=== PATIENT | female | born 1955 | race Native Hawaiian/Other Pacific Islander ===

== ENCOUNTER 2021-02-17 07:58 | Outpatient (CLI) | payer OTHER ==
[~2021-02-17] VITALS: Ht 175.3 cm; Wt 151.5 kg
== END 2021-02-17 19:40 | disposition home or self-care (01) ==
LOC: DIABINF 07:58
PROVIDERS: ATTEND Internal Medicine Endocrinology, Diabetes & Metabolism
DX: E11.65 Type 2 diabetes mellitus with hyperglycemia (principal); E11.40 Type 2 diabetes mellitus with diabetic neuropathy, unspecified; E78.2 Mixed hyperlipidemia; Z86.73 Personal history of transient ischemic attack (TIA), and cerebral infarction without residual deficits; K21.9 Gastro-esophageal reflux disease without esophagitis; F32.89 Other specified depressive episodes; E55.9 Vitamin D deficiency, unspecified; M17.0 Bilateral primary osteoarthritis of knee
CPT/HCPCS: 82948; 96365; 96366; 96521; 99204; J1815; J1817

== ENCOUNTER 2021-02-19 07:37 | Outpatient (CLI) | payer OTHER ==
[~2021-02-19] VITALS: Ht 175.3 cm; Wt 151.5 kg
== END 2021-02-19 20:21 | disposition home or self-care (01) ==
LOC: DIABINF 07:37
PROVIDERS: ATTEND Internal Medicine Endocrinology, Diabetes & Metabolism
DX: E11.65 Type 2 diabetes mellitus with hyperglycemia (principal); E11.40 Type 2 diabetes mellitus with diabetic neuropathy, unspecified; E78.2 Mixed hyperlipidemia; Z86.73 Personal history of transient ischemic attack (TIA), and cerebral infarction without residual deficits; K21.9 Gastro-esophageal reflux disease without esophagitis; F32.89 Other specified depressive episodes; E55.9 Vitamin D deficiency, unspecified; M17.0 Bilateral primary osteoarthritis of knee; I10 Essential (primary) hypertension
CPT/HCPCS: 82948; 96365; 96366; 96521; J1815; J1817

== ENCOUNTER 2021-02-24 07:41 | Outpatient (CLI) | payer OTHER ==
[~2021-02-24] VITALS: Ht 175.3 cm; Wt 151.5 kg
== END 2021-02-24 21:55 | disposition home or self-care (01) ==
LOC: DIABINF 07:41
PROVIDERS: ATTEND Internal Medicine Endocrinology, Diabetes & Metabolism
DX: E11.65 Type 2 diabetes mellitus with hyperglycemia (principal); E11.40 Type 2 diabetes mellitus with diabetic neuropathy, unspecified; E78.2 Mixed hyperlipidemia; I10 Essential (primary) hypertension; G45.8 Other transient cerebral ischemic attacks and related syndromes; K21.9 Gastro-esophageal reflux disease without esophagitis; F41.1 Generalized anxiety disorder; F33.9 Major depressive disorder, recurrent, unspecified; E55.9 Vitamin D deficiency, unspecified; M17.0 Bilateral primary osteoarthritis of knee
CPT/HCPCS: 82948; 96365; 96366; 96521; J1815; J1817

== ENCOUNTER 2021-02-26 07:50 | Outpatient (CLI) | payer OTHER ==
[~2021-02-26] VITALS: Ht 175.3 cm; Wt 151.5 kg
== END 2021-02-26 23:13 | disposition home or self-care (01) ==
LOC: DIABINF 07:50
PROVIDERS: ATTEND Internal Medicine Endocrinology, Diabetes & Metabolism
DX: E11.65 Type 2 diabetes mellitus with hyperglycemia (principal); E11.40 Type 2 diabetes mellitus with diabetic neuropathy, unspecified; E78.2 Mixed hyperlipidemia; I10 Essential (primary) hypertension; G45.8 Other transient cerebral ischemic attacks and related syndromes; K21.9 Gastro-esophageal reflux disease without esophagitis; F41.1 Generalized anxiety disorder; F33.9 Major depressive disorder, recurrent, unspecified; E55.9 Vitamin D deficiency, unspecified; M17.0 Bilateral primary osteoarthritis of knee
CPT/HCPCS: 82948; 96365; 96366; 96521; J1815; J1817

== ENCOUNTER 2021-03-03 07:34 | Outpatient (CLI) | payer OTHER ==
[~2021-03-03] VITALS: Ht 175.3 cm; Wt 151.5 kg
== END 2021-03-03 19:30 | disposition home or self-care (01) ==
LOC: DIABINF 07:34
PROVIDERS: ATTEND Internal Medicine Endocrinology, Diabetes & Metabolism
DX: E11.65 Type 2 diabetes mellitus with hyperglycemia (principal); E11.40 Type 2 diabetes mellitus with diabetic neuropathy, unspecified; E78.2 Mixed hyperlipidemia; I10 Essential (primary) hypertension; G45.9 Transient cerebral ischemic attack, unspecified; K21.9 Gastro-esophageal reflux disease without esophagitis; F41.1 Generalized anxiety disorder; F33.0 Major depressive disorder, recurrent, mild; E55.9 Vitamin D deficiency, unspecified; M17.0 Bilateral primary osteoarthritis of knee; S80.811A Abrasion, right lower leg, initial encounter
CPT/HCPCS: 82948; 96365; 96366; 96521; J1815; J1817

== ENCOUNTER 2021-03-05 12:19 | Outpatient (CLI) | payer OTHER ==
[~2021-03-05] VITALS: Ht 175.3 cm; Wt 152.4 kg
== END 2021-03-05 22:27 | disposition home or self-care (01) ==
LOC: DIABINF 12:19
PROVIDERS: ATTEND Internal Medicine Endocrinology, Diabetes & Metabolism
DX: E11.65 Type 2 diabetes mellitus with hyperglycemia (principal); E11.40 Type 2 diabetes mellitus with diabetic neuropathy, unspecified; E78.2 Mixed hyperlipidemia; I10 Essential (primary) hypertension; G45.8 Other transient cerebral ischemic attacks and related syndromes; K21.9 Gastro-esophageal reflux disease without esophagitis; F41.1 Generalized anxiety disorder; F33.0 Major depressive disorder, recurrent, mild; E55.9 Vitamin D deficiency, unspecified; M17.0 Bilateral primary osteoarthritis of knee; S80.811A Abrasion, right lower leg, initial encounter
CPT/HCPCS: 82948; 96365; 96366; 96521; J1815; J1817

== ENCOUNTER 2021-03-12 12:14 | Outpatient (CLI) | payer OTHER ==
[~2021-03-12] VITALS: Ht 175.3 cm; Wt 152.4 kg
== END 2021-03-12 22:00 | disposition home or self-care (01) ==
LOC: DIABINF 12:14
PROVIDERS: ATTEND Internal Medicine Endocrinology, Diabetes & Metabolism
DX: E11.65 Type 2 diabetes mellitus with hyperglycemia (principal); E11.40 Type 2 diabetes mellitus with diabetic neuropathy, unspecified; E78.2 Mixed hyperlipidemia; I10 Essential (primary) hypertension; G45.8 Other transient cerebral ischemic attacks and related syndromes; K21.9 Gastro-esophageal reflux disease without esophagitis; F41.1 Generalized anxiety disorder; F33.0 Major depressive disorder, recurrent, mild; E55.9 Vitamin D deficiency, unspecified; M17.0 Bilateral primary osteoarthritis of knee; S80.811D Abrasion, right lower leg, subsequent encounter
CPT/HCPCS: 82948; 96365; 96366; 96521; J1815; J1817

== ENCOUNTER 2021-03-19 12:48 | Outpatient (CLI) | payer OTHER ==
[~2021-03-19] VITALS: Ht 175.3 cm; Wt 152.4 kg
== END 2021-03-19 23:50 | disposition home or self-care (01) ==
LOC: DIABINF 12:48
PROVIDERS: ATTEND Internal Medicine Endocrinology, Diabetes & Metabolism
DX: E11.65 Type 2 diabetes mellitus with hyperglycemia (principal); E11.40 Type 2 diabetes mellitus with diabetic neuropathy, unspecified; E78.2 Mixed hyperlipidemia; I10 Essential (primary) hypertension; G45.8 Other transient cerebral ischemic attacks and related syndromes; K21.9 Gastro-esophageal reflux disease without esophagitis; F41.1 Generalized anxiety disorder; F33.0 Major depressive disorder, recurrent, mild; E55.9 Vitamin D deficiency, unspecified; M17.0 Bilateral primary osteoarthritis of knee; S80.811A Abrasion, right lower leg, initial encounter
CPT/HCPCS: 82948; 96365; 96366; 96521; J1815; J1817

== ENCOUNTER 2021-04-02 12:37 | Outpatient (CLI) | payer OTHER ==
[~2021-04-02] VITALS: Ht 175.3 cm; Wt 152.4 kg
== END 2021-04-02 16:00 | disposition home or self-care (01) ==
LOC: DIABINF 12:37
PROVIDERS: ATTEND Internal Medicine Endocrinology, Diabetes & Metabolism
DX: E11.40 Type 2 diabetes mellitus with diabetic neuropathy, unspecified (principal); E11.65 Type 2 diabetes mellitus with hyperglycemia; E78.2 Mixed hyperlipidemia; I10 Essential (primary) hypertension; K21.9 Gastro-esophageal reflux disease without esophagitis; Z86.73 Personal history of transient ischemic attack (TIA), and cerebral infarction without residual deficits; F41.8 Other specified anxiety disorders; F32.89 Other specified depressive episodes; E55.9 Vitamin D deficiency, unspecified; M17.0 Bilateral primary osteoarthritis of knee; J01.80 Other acute sinusitis
CPT/HCPCS: 82948; 96365; 96366; 96521; J1815; J1817

== ENCOUNTER 2021-04-09 12:31 | Outpatient (CLI) | payer OTHER ==
[~2021-04-09] VITALS: Ht 175.3 cm; Wt 152.4 kg
== END 2021-04-09 16:00 | disposition home or self-care (01) ==
LOC: DIABINF 12:31
PROVIDERS: ATTEND Nurse Practitioner
DX: E11.65 Type 2 diabetes mellitus with hyperglycemia (principal); E11.40 Type 2 diabetes mellitus with diabetic neuropathy, unspecified; E78.2 Mixed hyperlipidemia; I10 Essential (primary) hypertension; Z86.73 Personal history of transient ischemic attack (TIA), and cerebral infarction without residual deficits; K21.9 Gastro-esophageal reflux disease without esophagitis; F41.1 Generalized anxiety disorder; F33.0 Major depressive disorder, recurrent, mild; E55.9 Vitamin D deficiency, unspecified; M17.0 Bilateral primary osteoarthritis of knee; L30.0 Nummular dermatitis
CPT/HCPCS: 82948; 96365; 96366; 96521; J1815; J1817

== ENCOUNTER 2021-04-16 12:08 | Outpatient (CLI) | payer OTHER ==
[~2021-04-16] VITALS: Ht 175.3 cm; Wt 152.4 kg
== END 2021-04-16 16:00 | disposition home or self-care (01) ==
LOC: DIABINF 12:08
PROVIDERS: ATTEND Internal Medicine Endocrinology, Diabetes & Metabolism
DX: E11.65 Type 2 diabetes mellitus with hyperglycemia (principal); E11.40 Type 2 diabetes mellitus with diabetic neuropathy, unspecified; E78.2 Mixed hyperlipidemia; I10 Essential (primary) hypertension; Z86.73 Personal history of transient ischemic attack (TIA), and cerebral infarction without residual deficits; K21.9 Gastro-esophageal reflux disease without esophagitis; F41.1 Generalized anxiety disorder; F33.8 Other recurrent depressive disorders; E55.9 Vitamin D deficiency, unspecified; M17.0 Bilateral primary osteoarthritis of knee; L60.0 Ingrowing nail
CPT/HCPCS: 82948; 96365; 96366; 96521; J1815; J1817

== ENCOUNTER 2021-04-23 12:47 | Outpatient (CLI) | payer OTHER ==
[~2021-04-23] VITALS: Ht 175.3 cm; Wt 152.4 kg
== END 2021-04-23 19:48 | disposition home or self-care (01) ==
LOC: DIABINF 12:47
PROVIDERS: ATTEND Nurse Practitioner
DX: E11.65 Type 2 diabetes mellitus with hyperglycemia (principal); E11.40 Type 2 diabetes mellitus with diabetic neuropathy, unspecified; E78.2 Mixed hyperlipidemia; I10 Essential (primary) hypertension; Z86.73 Personal history of transient ischemic attack (TIA), and cerebral infarction without residual deficits
CPT/HCPCS: 82948; 96365; 96366; 96521; J1815; J1817

== ENCOUNTER 2021-04-30 07:57 | Outpatient (CLI) | payer OTHER ==
[~2021-04-30] VITALS: Ht 175.3 cm; Wt 152.4 kg
== END 2021-04-30 19:06 | disposition home or self-care (01) ==
LOC: DIABINF 07:57
PROVIDERS: ATTEND Nurse Practitioner
DX: E11.65 Type 2 diabetes mellitus with hyperglycemia (principal); E11.40 Type 2 diabetes mellitus with diabetic neuropathy, unspecified; E78.2 Mixed hyperlipidemia; I10 Essential (primary) hypertension; Z86.73 Personal history of transient ischemic attack (TIA), and cerebral infarction without residual deficits
CPT/HCPCS: 82948; 96365; 96366; 96521; J1815; J1817

== ENCOUNTER 2021-05-09 07:33 | Outpatient (CLI) | payer OTHER ==
[2021-05-09 08:40] LABS: POTASSIUM 4.2 mmol/L (3.6-5.2)
== END 2021-05-09 20:24 | disposition home or self-care (01) ==
LOC: LABW 07:33
PROVIDERS: ATTEND Internal Medicine Endocrinology, Diabetes & Metabolism
DX: E11.9 Type 2 diabetes mellitus without complications (principal); Z68.42 Body mass index [BMI] 45.0-49.9, adult; E78.2 Mixed hyperlipidemia; I10 Essential (primary) hypertension; E55.9 Vitamin D deficiency, unspecified
CPT/HCPCS: 36415; 80053; 80061; 82306; 83036; 83525; 84681

== ENCOUNTER 2021-05-14 12:34 | Outpatient (CLI) | payer OTHER ==
[~2021-05-14] VITALS: Ht 175.3 cm; Wt 152.4 kg
== END 2021-05-14 22:07 | disposition home or self-care (01) ==
LOC: DIABINF 12:34
PROVIDERS: ATTEND Internal Medicine Endocrinology, Diabetes & Metabolism
DX: E11.65 Type 2 diabetes mellitus with hyperglycemia (principal); E11.40 Type 2 diabetes mellitus with diabetic neuropathy, unspecified; I10 Essential (primary) hypertension; E78.2 Mixed hyperlipidemia; Z86.73 Personal history of transient ischemic attack (TIA), and cerebral infarction without residual deficits; K21.9 Gastro-esophageal reflux disease without esophagitis; L60.0 Ingrowing nail; E55.9 Vitamin D deficiency, unspecified
CPT/HCPCS: 82948; 96365; 96366; 96521; J1815; J1817

== ENCOUNTER 2021-05-21 12:42 | Outpatient (CLI) | payer OTHER ==
[~2021-05-21] VITALS: Ht 175.3 cm; Wt 107.0 kg
== END 2021-05-21 20:34 | disposition home or self-care (01) ==
LOC: DIABINF 12:42
PROVIDERS: ATTEND Internal Medicine Endocrinology, Diabetes & Metabolism
DX: E11.65 Type 2 diabetes mellitus with hyperglycemia (principal); E11.40 Type 2 diabetes mellitus with diabetic neuropathy, unspecified; I10 Essential (primary) hypertension; E78.2 Mixed hyperlipidemia; Z86.73 Personal history of transient ischemic attack (TIA), and cerebral infarction without residual deficits; K21.9 Gastro-esophageal reflux disease without esophagitis; L60.0 Ingrowing nail; E55.9 Vitamin D deficiency, unspecified
CPT/HCPCS: 82948; 96365; 96366; 96521; J1815; J1817

== ENCOUNTER 2021-05-28 12:40 | Outpatient (CLI) | payer OTHER ==
[~2021-05-28] VITALS: Ht 160 cm; Wt 117.9 kg
== END 2021-05-28 22:39 | disposition home or self-care (01) ==
LOC: DIABINF 12:40
PROVIDERS: ATTEND Internal Medicine Endocrinology, Diabetes & Metabolism
DX: E11.65 Type 2 diabetes mellitus with hyperglycemia (principal); E11.40 Type 2 diabetes mellitus with diabetic neuropathy, unspecified; I10 Essential (primary) hypertension; E78.2 Mixed hyperlipidemia; Z86.73 Personal history of transient ischemic attack (TIA), and cerebral infarction without residual deficits; K21.9 Gastro-esophageal reflux disease without esophagitis; L60.0 Ingrowing nail; E55.9 Vitamin D deficiency, unspecified; E53.8 Deficiency of other specified B group vitamins; Z79.84 Long term (current) use of oral hypoglycemic drugs
CPT/HCPCS: 82948; 96365; 96366; 96521; J1815; J1817

== ENCOUNTER 2021-06-11 12:18 | Outpatient (CLI) | payer OTHER ==
[~2021-06-11] VITALS: Ht 175.3 cm; Wt 153.3 kg
== END 2021-06-11 20:17 | disposition home or self-care (01) ==
LOC: DIABINF 12:18
PROVIDERS: ATTEND Internal Medicine Endocrinology, Diabetes & Metabolism
DX: E11.65 Type 2 diabetes mellitus with hyperglycemia (principal); E11.40 Type 2 diabetes mellitus with diabetic neuropathy, unspecified; I10 Essential (primary) hypertension; E78.2 Mixed hyperlipidemia; Z86.73 Personal history of transient ischemic attack (TIA), and cerebral infarction without residual deficits; K21.9 Gastro-esophageal reflux disease without esophagitis; L60.0 Ingrowing nail; E55.9 Vitamin D deficiency, unspecified; E53.8 Deficiency of other specified B group vitamins; Z79.84 Long term (current) use of oral hypoglycemic drugs
CPT/HCPCS: 82948; 96365; 96366; 96521; J1815; J1817

== ENCOUNTER 2021-06-18 12:27 | Outpatient (CLI) | payer OTHER ==
[~2021-06-18] VITALS: Ht 175.3 cm; Wt 153.3 kg
== END 2021-06-18 22:16 | disposition home or self-care (01) ==
LOC: DIABINF 12:27
PROVIDERS: ATTEND Internal Medicine Endocrinology, Diabetes & Metabolism
DX: E11.65 Type 2 diabetes mellitus with hyperglycemia (principal); E11.40 Type 2 diabetes mellitus with diabetic neuropathy, unspecified; I10 Essential (primary) hypertension; E78.2 Mixed hyperlipidemia; Z86.73 Personal history of transient ischemic attack (TIA), and cerebral infarction without residual deficits; K21.9 Gastro-esophageal reflux disease without esophagitis; L60.0 Ingrowing nail; E55.9 Vitamin D deficiency, unspecified; E53.8 Deficiency of other specified B group vitamins; Z79.84 Long term (current) use of oral hypoglycemic drugs
CPT/HCPCS: 82948; 96365; 96366; 96521; J1815; J1817

== ENCOUNTER 2022-07-05 09:30 | Emergency (ER) | payer OTHER ==
[~2022-07-05] VITALS: Ht 175.3 cm; Wt 147.4 kg
[2022-07-05 09:35] VITALS: TEMP 98.9
[2022-07-05 10:13] LABS: PLATELET COUNT 201 K/uL (152-353)
[2022-07-05 10:28] LABS: POTASSIUM 3.9 mmol/L (3.6-5.2)
[2022-07-05 13:40] VITALS: BP 129/74
== END 2022-07-05 13:40 | disposition home or self-care (01) ==
LOC: ED 09:30
PROVIDERS: Emergency Medicine Emergency Medical Services
DX: R07.89 Other chest pain (principal); R60.0 Localized edema
CPT/HCPCS: 36415; 80053; 83735; 83880; 84484; 85027; 85610; 93005; 99284

== ENCOUNTER 2022-07-28 07:36 | Outpatient (CLI) | payer OTHER ==
[~2022-07-28] VITALS: Ht 176.5 cm; Wt 147.9 kg
== END 2022-07-28 19:27 | disposition home or self-care (01) ==
LOC: NM 07:36
PROVIDERS: ATTEND Internal Medicine Endocrinology, Diabetes & Metabolism
DX: R07.89 Other chest pain (principal)
CPT/HCPCS: A9500; J2785

== ENCOUNTER 2023-02-21 11:44 | Outpatient (CLI) | payer OTHER | END 2023-02-21 19:01 | disposition home or self-care (01) | LOC: RAD 11:44 | PROVIDERS: ATTEND Orthopaedic Surgery | DX: M25.561 Pain in right knee (principal); M25.562 Pain in left knee ==